=== PATIENT | male | born 1965 | race Caucasian/White ===

== ENCOUNTER → 2020-05-23 11:01 | Outpatient (BNVA) | payer BC, SELFPAY | PROVIDERS: PCP Nurse Practitioner Family; Referring Provider Nurse Practitioner Family; Visit Provider Internal Medicine | DX: E05.00 Thyrotoxicosis with diffuse goiter without thyrotoxic crisis or storm (principal); R79.89 Other specified abnormal findings of blood chemistry | CPT/HCPCS: 99204 ==

== ENCOUNTER 2020-05-26 08:50 | Outpatient (CLI) | payer BC, SELFPAY ==
[2020-05-26 10:05] LABS: Free T4 Free Thyroxine 2.19 ng/dL (0.82-1.77); Thyroid Stimulating Hormone 0.01 uIU/mL (0.27-4.20)
[2020-05-28 09:23] LABS: T3 Total 221 ng/dL (76-181)
[2020-06-02 18:52] LABS: TSH Receptor Binding Antibody 12.17 IU/L (< OR = 2.00)
== END 2020-05-26 08:51 | disposition home or self-care (01) ==
PROVIDERS: PCP Nurse Practitioner Family; Visit Provider Internal Medicine
DX: E05.00 Thyrotoxicosis with diffuse goiter without thyrotoxic crisis or storm (principal)
CPT/HCPCS: 36415; 83516; 84439; 84443; 84480

== ENCOUNTER → 2020-07-21 08:27 | Outpatient (BNVA) | payer OTHER, SELFPAY | PROVIDERS: PCP Nurse Practitioner Family; Visit Provider Internal Medicine | DX: E05.00 Thyrotoxicosis with diffuse goiter without thyrotoxic crisis or storm (principal); R79.89 Other specified abnormal findings of blood chemistry | CPT/HCPCS: 99214 ==

== ENCOUNTER 2020-07-27 12:59 | Outpatient (CLI) | payer OTHER, SELFPAY ==
[2020-07-27 13:54] LABS: Alanine Aminotransferase 24 U/L (0-41); Albumin Level 4.2 g/dL (3.5-5.2); Alkaline Phosphatase 129 IU/L (40-130); Anion Gap 15.9 (5-19); Aspartate Amino Transferase 17 U/L (0-40); Blood Urea Nitrogen 15 mg/dL (6-20); Calcium 8.7 mg/dL (8.5-10.5); Carbon Dioxide 23 mmol/L (22-29); Chloride 104 mmol/L (98-107); Free T4 Free Thyroxine 1.59 ng/dL (0.82-1.77); Glomerular Filtration Rate 117.1 mL/min (90-130); Glucose 92 mg/dL (65-115); Osmolality Calculated 288 mOsm/kg (285-295); Potassium 3.9 mmol/L (3.5-5.1); Sodium 139 mmol/L (136-145); Thyroid Stimulating Hormone 0.01 uIU/mL (0.27-4.20); Total Bilirubin 0.6 mg/dL (0.15-1.2); Total Protein 7.2 g/dL (6.6-8.7)
[2020-07-28 08:27] LABS: T3 Total 222 ng/dL (76-181)
== END 2020-07-27 13:00 | disposition home or self-care (01) ==
LOC: LAB 13:02
PROVIDERS: PCP Nurse Practitioner Family; Visit Provider Internal Medicine
DX: E05.00 Thyrotoxicosis with diffuse goiter without thyrotoxic crisis or storm (principal)
CPT/HCPCS: 36415; 80053; 84439; 84443; 84480

== ENCOUNTER 2020-12-05 07:56 | Outpatient (CLI) | payer OTHER, SELFPAY ==
[2020-12-05 09:11] LABS: Free T4 Free Thyroxine 1.01 ng/dL (0.82-1.77); Thyroid Stimulating Hormone 0.04 uIU/mL (0.27-4.20)
[2020-12-06 11:13] LABS: T3 Total 129 ng/dL (76-181)
== END 2020-12-05 07:57 | disposition home or self-care (01) ==
PROVIDERS: PCP Nurse Practitioner Family; Visit Provider Internal Medicine
DX: R79.89 Other specified abnormal findings of blood chemistry (principal)
CPT/HCPCS: 36415; 84439; 84443; 84480

== ENCOUNTER 2021-01-18 08:34 | Outpatient (CLI) | payer OTHER, SELFPAY ==
[2021-01-18 09:15] LABS: Basophils % 0.6 %; Eosinophils # 0.2 10^3/uL (0.0-0.8); Eosinophils % 4.3 %; Hematocrit 45.5 % (42.0-52.0); Hemoglobin 15.5 g/dL (11.7-16.6); Lymphocytes # 1.8 10^3/uL (0.8-4.8); Lymphocytes % 33.6 %; Mean Corpuscular HGB Conc 34.1 g/dL (30.0-36.0); Mean Corpuscular Hemoglobin 31.4 pg (28.0-34.0); Mean Corpuscular Volume 92.1 fl (80-94); Mean Platelet Volume 9.1 fL (7.4-10.4); Monocytes # 0.4 10^3/uL (0.2-0.9); Monocytes % 7.1 %; Neutrophils # 2.86 10^3/uL (1.8-7.7); Neutrophils % 53.8 %; Nucleated Red Blood Cells % 0 %; Platelet Count 305 10^3/cmm (130-400); Red Blood Count 4.94 10^6/uL (4.1-5.3); Red Cell Distribution Width 12.4 % (12.1-15.1); White Blood Count 5.3 10^3/uL (4.0-10.0)
[2021-01-18 09:40] LABS: Alanine Aminotransferase 25 U/L (0-41); Albumin Level 4.2 g/dL (3.5-5.2); Alkaline Phosphatase 111 IU/L (40-130); Anion Gap 14.1 (5-19); Aspartate Amino Transferase 22 U/L (0-40); Blood Urea Nitrogen 15 mg/dL (6-20); Calcium 9.1 mg/dL (8.5-10.5); Carbon Dioxide 26 mmol/L (22-29); Chloride 102 mmol/L (98-107); Globulin 2.9 g/dL (1.3-4.6); Glomerular Filtration Rate 77.6 mL/min (90-130); Glucose 109 mg/dL (65-115); Osmolality Calculated 287 mOsm/kg (285-295); Potassium 4.1 mmol/L (3.5-5.1); Sodium 138 mmol/L (136-145); Total Bilirubin 0.5 mg/dL (0.15-1.2); Total Protein 7.1 g/dL (6.6-8.7)
== END 2021-01-18 08:35 | disposition home or self-care (01) ==
LOC: LAB 08:39
PROVIDERS: PCP Nurse Practitioner Family; Visit Provider Internal Medicine
DX: E05.00 Thyrotoxicosis with diffuse goiter without thyrotoxic crisis or storm (principal); R79.89 Other specified abnormal findings of blood chemistry
CPT/HCPCS: 36415; 80053; 85025

== ENCOUNTER → 2021-10-16 12:47 | Outpatient (BNVA) | payer OTHER, SELFPAY | PROVIDERS: PCP Nurse Practitioner Family; Visit Provider Nurse Practitioner Family | DX: Z00.00 Encounter for general adult medical examination without abnormal findings (principal); K21.9 Gastro-esophageal reflux disease without esophagitis; N52.9 Male erectile dysfunction, unspecified; I10 Essential (primary) hypertension | CPT/HCPCS: 80053; 80061; 84403; 84439; 84443; 84481; 85025 ==

== ENCOUNTER → 2022-01-15 14:30 | Outpatient (BNVA) | payer OTHER, SELFPAY | PROVIDERS: PCP Nurse Practitioner Family; Visit Provider Nurse Practitioner Family | DX: E05.00 Thyrotoxicosis with diffuse goiter without thyrotoxic crisis or storm (principal) | CPT/HCPCS: 80053; 84436; 84443; 84481; 85025 ==

== ENCOUNTER 2022-08-13 12:18 | Outpatient (CLI) | payer OTHER, SELFPAY ==
[2022-08-13 13:15] LABS: Basophils % 0.6 %; Eosinophils # 0.2 10^3/uL (0.0-0.8); Eosinophils % 2.4 %; Hematocrit 43.6 % (42.0-52.0); Hemoglobin 14.6 g/dL (11.7-16.6); Lymphocytes # 2.1 10^3/uL (0.8-4.8); Lymphocytes % 31.9 %; Mean Corpuscular HGB Conc 33.5 g/dL (30.0-36.0); Mean Corpuscular Hemoglobin 30.7 pg (28.0-34.0); Mean Corpuscular Volume 91.8 fl (80-94); Mean Platelet Volume 9.5 fL (7.4-10.4); Monocytes # 0.6 10^3/uL (0.2-0.9); Monocytes % 8.3 %; Neutrophils # 3.76 10^3/uL (1.8-7.7); Neutrophils % 56.5 %; Nucleated Red Blood Cells % 0 %; Platelet Count 329 10^3/cmm (130-400); Red Blood Count 4.75 10^6/uL (4.1-5.3); Red Cell Distribution Width 12.9 % (12.1-15.1); White Blood Count 6.7 10^3/uL (4.0-10.0)
[2022-08-13 13:48] LABS: Alanine Aminotransferase 18 U/L (0-41); Albumin Level 4.3 g/dL (3.5-5.2); Alkaline Phosphatase 90 U/L (40-130); Anion Gap 14.8 (5-19); Aspartate Amino Transferase 17 U/L (0-40); Blood Urea Nitrogen 12 mg/dL (6-20); Calcium 9.1 mg/dL (8.5-10.5); Carbon Dioxide 24 mmol/L (22-29); Chloride 102 mmol/L (98-107); Free T4 Free Thyroxine 1.08 ng/dL (0.82-1.77); Glucose 88 mg/dL (65-115); Osmolality Calculated 283 mOsm/kg (285-295); Potassium 3.8 mmol/L (3.5-5.1); Sodium 137 mmol/L (136-145); Thyroid Stimulating Hormone 1.98 uIU/mL (0.27-4.20); Total Bilirubin 0.9 mg/dL (0.15-1.2); Total Protein 7.3 g/dL (6.6-8.7)
[2022-08-14 10:55] LABS: T3 Total 119 ng/dL (76-181)
== END 2022-08-13 12:19 | disposition home or self-care (01) ==
PROVIDERS: PCP Nurse Practitioner Family; Visit Provider Internal Medicine
DX: E05.00 Thyrotoxicosis with diffuse goiter without thyrotoxic crisis or storm (principal); E78.5 Hyperlipidemia, unspecified; I10 Essential (primary) hypertension; K21.9 Gastro-esophageal reflux disease without esophagitis
CPT/HCPCS: 36415; 80053; 84439; 84443; 84480; 85025

== ENCOUNTER → 2023-01-30 07:45 | Outpatient (BNVA) | payer OTHER, SELFPAY | PROVIDERS: PCP Clinical Nurse Specialist Adult Health; Visit Provider Clinical Nurse Specialist Adult Health | DX: E78.2 Mixed hyperlipidemia (principal); Z23 Encounter for immunization; I15.2 Hypertension secondary to endocrine disorders; E05.90 Thyrotoxicosis, unspecified without thyrotoxic crisis or storm; K21.9 Gastro-esophageal reflux disease without esophagitis | CPT/HCPCS: 80061 ==

== ENCOUNTER → 2023-02-19 12:22 | Outpatient (BNVA) | payer OTHER, SELFPAY | PROVIDERS: PCP Clinical Nurse Specialist Adult Health; Visit Provider Internal Medicine | DX: E05.00 Thyrotoxicosis with diffuse goiter without thyrotoxic crisis or storm (principal); E05.90 Thyrotoxicosis, unspecified without thyrotoxic crisis or storm | CPT/HCPCS: 84443 ==

== ENCOUNTER 2023-04-18 11:28 | Outpatient (CLI) | payer OTHER, SELFPAY ==
[2023-04-18 12:14] LABS: Free T4 Free Thyroxine 1.08 ng/dL (0.82-1.77); Thyroid Stimulating Hormone 0.45 uIU/mL (0.27-4.20)
[2023-04-20 03:34] LABS: T3 Total 116 ng/dL (76-181)
== END 2023-04-18 11:29 | disposition home or self-care (01) ==
LOC: LAB 11:30
PROVIDERS: PCP Clinical Nurse Specialist Adult Health; Visit Provider Internal Medicine
DX: E05.00 Thyrotoxicosis with diffuse goiter without thyrotoxic crisis or storm (principal)
CPT/HCPCS: 36415; 84439; 84443; 84480

== ENCOUNTER 2023-07-08 07:32 | Outpatient (CLI) | payer OTHER, SELFPAY ==
[2023-07-08 08:38] LABS: Free T4 Free Thyroxine 1.05 ng/dL (0.82-1.77); Thyroid Stimulating Hormone 0.28 uIU/mL (0.27-4.20)
[2023-07-09 11:59] LABS: T3 Total 134 ng/dL (76-181)
== END 2023-07-08 07:33 | disposition home or self-care (01) ==
LOC: LAB 07:33
PROVIDERS: PCP Clinical Nurse Specialist Adult Health; Visit Provider Internal Medicine
DX: E05.90 Thyrotoxicosis, unspecified without thyrotoxic crisis or storm (principal)
CPT/HCPCS: 36415; 84439; 84443; 84480

== ENCOUNTER 2023-09-29 07:06 | Outpatient (CLI) | payer OTHER, SELFPAY ==
[2023-09-29 08:43] LABS: Free T4 Free Thyroxine 1.02 ng/dL (0.82-1.77); Thyroid Stimulating Hormone 0.76 uIU/mL (0.27-4.20)
== END 2023-09-29 07:07 | disposition home or self-care (01) ==
LOC: LAB 07:07
PROVIDERS: PCP Clinical Nurse Specialist Adult Health; Visit Provider Internal Medicine
DX: E05.00 Thyrotoxicosis with diffuse goiter without thyrotoxic crisis or storm (principal); R63.5 Abnormal weight gain
CPT/HCPCS: 36415; 83516; 84439; 84443

== ENCOUNTER 2024-04-27 07:23 | Outpatient (CLI) | payer OTHER, SELFPAY ==
[2024-04-27 08:23] LABS: Cholesterol 178 mg/dL (0-200); Free T4 Free Thyroxine 0.97 ng/dL (0.82-1.77); HDL Cholesterol 54 mg/dL (60-100); LDL Cholesterol Calculated 86 mg/dL (50-129); LDL HDL Ratio 1.59 RATIO (0.00-3.22); Thyroid Stimulating Hormone 1.17 uIU/mL (0.27-4.20); Triglycerides 190 mg/dL (0-150)
[2024-04-28 09:40] LABS: T3 Total 115 ng/dL (76-181)
== END 2024-04-27 07:24 | disposition home or self-care (01) ==
LOC: LAB 07:25
PROVIDERS: PCP Clinical Nurse Specialist Adult Health; Visit Provider Internal Medicine
DX: E05.00 Thyrotoxicosis with diffuse goiter without thyrotoxic crisis or storm (principal); E05.90 Thyrotoxicosis, unspecified without thyrotoxic crisis or storm; R63.5 Abnormal weight gain; E78.2 Mixed hyperlipidemia
CPT/HCPCS: 36415; 80061; 84439; 84443; 84480

== ENCOUNTER → 2024-07-27 13:20 | Outpatient (BNVA) | payer OTHER, SELFPAY | PROVIDERS: PCP Family Medicine; Visit Provider Family Medicine | DX: I15.2 Hypertension secondary to endocrine disorders (principal); E78.2 Mixed hyperlipidemia | CPT/HCPCS: 80053; 85025 ==

== ENCOUNTER 2024-11-05 18:06 | Emergency (ER) | payer OTHER, SELFPAY ==
[2024-11-05 18:30] VITALS: BP 114/77; PULSE 75; RESP 16; TEMP 36.7; O2SAT 95; BMI 33.7
--- NOTE | 2024-11-05 18:43 | ECG_ITS ---
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 Measurements Intervals [place] Rate: 63 P: 35 OH: 147 QRS: -7 QRSD: 109 T: 42 QT: 377 QTc: 386 Interpretive Statements SINUS RHYTHM INCOMPLETE RIGHT BUNDLE BRANCH BLOCK [90+ ms QRS DURATION, TERMINAL R IN V1/V2, 40+ ms S IN I/aVL/V4/V5/V6] No previous ECG available for comparison Electronically Signed On 11-06-2024 00:16:28 CDT by Monica Farias M.D. [email or web address]
--- NOTE | 2024-11-05 18:43 | XRR_ITS ---
PROCEDURE INFORMATION: Exam: XR Chest Exam date and time: 11/05/2024 7:28 PM Age: 59 years old Clinical indication: Chest pressure; C/O chest pain TECHNIQUE: Imaging protocol: Radiologic exam of the chest. Views: 1 view. COMPARISON: No relevant prior studies available. FINDINGS: Lungs: Unremarkable. No consolidation. Pleural spaces: Unremarkable. No pleural effusion. No pneumothorax. Heart/Mediastinum: Unremarkable. No cardiomegaly. Bones/joints: Unremarkable. XR/XR chest 1V portable [id number] IMPRESSION: No acute findings.
[2024-11-05 19:30] VITALS: BP 122/70; PULSE 76; O2SAT 98
[2024-11-05 19:48] LABS: Hematocrit 44.4 % (37-53); Hemoglobin 15.10 g/dL (11.27-16.99); Mean Corpuscular HGB Conc 34.0 g/dL (30-55); Mean Corpuscular Hemoglobin 31.4 pg (27-33); Mean Corpuscular Volume 92.3 fl (82-101); Nucleated Red Blood Cells % 0 %; Platelet Count 301 10^3/cmm (157-399); Red Blood Count 4.81 10^6/uL (3.85-5.65); White Blood Count 17.08 10^3/uL (3.29-11.43)
[2024-11-05 20:05] LABS: Troponin(5th) Baseline 10 ng/L (0-15)
[2024-11-05 20:08] LABS: Alanine Aminotransferase 22 U/L (0-41); Albumin Level 4.5 g/dL (3.5-5.2); Alkaline Phosphatase 99 U/L (40-130); Anion Gap 19.5 (5-19); Aspartate Amino Transferase 20 U/L (0-40); Blood Urea Nitrogen 17 mg/dL (6-20); Calcium 9.4 mg/dL (8.5-10.5); Carbon Dioxide 24 mmol/L (22-29); Chloride 101 mmol/L (98-107); Creatinine Clr Calc Pharmacy 88.4021; Globulin 2.9 g/dL (1.3-4.6); Glucose 100 mg/dL (65-115); Osmolality Calculated 292 mOsm/kg (285-295); Potassium 4.5 mmol/L (3.5-5.1); Sodium 140 mmol/L (136-145); Total Protein 7.4 g/dL (6.6-8.7)
[2024-11-05 20:18] VITALS: BP 135/87; PULSE 64; RESP 18; O2SAT 99
[2024-11-05 20:30] VITALS: BP 118/75; BP 124/81; BP 135/87; PULSE 67; PULSE 71; PULSE 73
[2024-11-05 20:38] VITALS: BP 114/77; PULSE 69; O2SAT 97
--- NOTE | 2024-11-06 05:47 | ED_ITS ---
HPI - Syncope 2 General: Chief Complaint: Syncope Stated Complaint: passed out 2x in last 60min Time Seen by Provider: 11/05/24 19:22 History of Present Illness: Gabe Ocampo is a 59-yo M with HTN on Losartan who blacked out twice this afternoon after yard work. He had been bending repeatedly while cleaning a lawn- mower, then came inside, sat down, and within 30 s felt dizzy, light-headed, and fuzzy. He slid from the chair to the floor, briefly lost consciousness, and struck his head only lightly because a cushion was beneath him. After 4?5 min he was helped back to the chair, where a second syncopal event occurred, this time with emesis of water he had recently drunk. He remained queasy for several minutes but recovered enough to walk to the car, though unsteadily. On arrival to ED he denies current dizziness, chest pain, shortness of breath, or abdominal pain; only mild arm soreness from venipuncture and minimal headache. He reports one bowl of cereal for breakfast, no lunch, minimal fluid intake, and about 30 min in hot, humid weather. No prior similar episodes to this extent. Denies diabetes, hypoglycemia, tobacco; admits two hard seltzers today. No recent infection symptoms. Related Data Home Medications ?Medication ?Instructions ?Recorded ?Confirmed omeprazole 20 mg capsule,delayed 20 mg PO DAILY 07/27/24 release Previous Rx's ?Medication ?Instructions ?Recorded losartan 100 mg tablet 100 mg PO DAILY #90 tabs 12/13 atorvastatin 40 mg tablet See Rx Instructions .Route 0 08/13/24 .COMPLEX #90 tabs tadalafil 10 mg tablet 10 mg PO DAILY PRN sexual ac tivity 09/05/24 #30 tabs Allergies Allergy/AdvReac Type Severity Reaction Status Date / Time No Known Allergies Allergy Verified 11/05/24 18:33 [facility] ED 2 [facility]: Medical History (Updated 11/05/24 @ 20:35 by Dipak Kruse MD) Hand dermatitis Hyperlipidemia GERD (gastroesophageal reflux disease) Hypertension Graves disease Surgical History (Updated 07/27/24 @ 12:22 by Sally Saavedra MD) History of carpal tunnel release bilateral Family History (Updated 07/27/24 @ 12:26 by Sally Saavedra MD) Mother , age 78 Scleroderma Father , CVA at age 70 Stroke Obesity Hypertension Brother , leukemia Leukemia Brother Hydrocephalus Social History (Updated 07/27/24 @ 12:38 by Sally Saavedra MD) Smoking and tobacco/nicotine status: never used tobacco/nicotine Second hand smoke exposure: No Alcohol intake: current Alcohol intake frequency: few times a month Household members: spouse Marital status: Number of children: 2 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 Pets and animals: Yes Pets & animals: cat(s) Leisure activites: hunting and fishing Special max needs: No Agree to transfusion: Yes Physical Exam 2 Const: COMMON NORMALS: no acute distress, patient oriented x3 and alert HENMT: COMMON NORMALS: normocephalic and atraumatic HEAD & SCALP: n ormocephalic and atraumatic Eye: COMMON NORMALS: Equal, round and reactive pupils present, EOMs intact bilaterally and no scleral icterus PUPIL: Yes Equal, round and reactive pupils present Resp: COMMON NORMALS: normal respiratory effort and No retractions Cardio: COMMON NORMALS: regular rate, regular rhythm and No murmurs present (Cardio) RATE: regular rate RHYTHM: regular rhythm GI: COMMON NORMALS: Normal to inspection, nondistended, normoactive bowel sounds present, Soft to palpation and non-tender PALPATION: Yes Soft to palpation Neuro: COMMON NORMALS: patient oriented x3 SENSORIUM/ORIENTATION: Yes alert Skin: COMMON NORMALS: no rashes or lesions noted GENERAL SKIN EXAM: no rashes or lesions noted Course 2 Vital Signs: Vital signs: Vital Signs Temperature 98.1 F 11/05/24 18:30 Pulse Rate 69 11/05/24 20:38 Respiratory Rate 18 11/05/24 20:18 Blood Pressure 114/77 11/05/24 20:38 Pulse Oximetry 97 11/05/24 20:38 Oxygen Delivery Me thod Room Air 11/05/24 20:18 MDM - Syncope Medical Decision Making At the time of my exam, patient is asymptomatic with stable vital signs. He is not orthostatic. He relates a story likely consistent with vasovagal etiology to his syncope. EKG, chest x-ray, labs are noncontributory. Troponin is not elevated. I do not feel he requires hospitalization or further workup at this time. He will be discharged in stable improved condition with instructions to be mindful of his blood pressure and follow-up with primary care to see if medication adjustment is warranted. He shows good understanding and agrees to the plan. Lab Data 11/05/24 19:42 11/05/24 19:42 Radiology Impressions Chest X-Ray 11/05/24 18:43 IMPRESSION: No acute findings. Laboratory Results WBC 17.08 10^3/uL (3.29-11.43) H 11/05/24 19:42 RBC 4.81 10^6/uL (3.85-5.65) 11/05/24 19:42 Hgb 15.10 g/dL (11.27-16.99) 11/05/24 19:42 Hct 44.4 % (37-53) 11/05/24 19:42 MCV 92.3 fl (82-101) 11/05/24 19:42 MCH 31.4 pg (27-33) 11/05/24 19:42 MCHC 34.0 g/dL (30-55) 11/05/24 19:42 RDW 12.8 % (12.1-15.1) 11/05/24 19:42 Plt Count 301 10^3/cmm (157-399) 11/05/24 19:42 MPV 8.9 fL (7.4-10.4) 11/05/24 19:42 Neut % (Auto) 79.5 % 11/05/24 19:42 Lymph % (Auto) 11.0 % 11/05/24 19:42 [place] % (Auto) 7.1 % 11/05/24 19:42 Eos % (Auto) 1.5 % 11/05/24 19:42 Baso % (Auto) 0.4 % 11/05/24 19:42 Neut # (Auto) 13.58 10^3/uL (1.8-7.7) H 11/05/24 19:42 Lymph # (Auto) 1.9 10^3/uL (0.8-4.8) 11/05/24 19:42 [place] # (Auto) 1.2 10^3/uL (0.2-0.9) H 11/05/24 19:42 Eos # (Auto) 0.3 10^3/uL (0.0-0.8) 11/05/24 19:42 Baso # (Auto) 0.1 10^3/uL (0.0-0.1) 11/05/24 19:42 Nucleated RBC % (auto) 0 % 11/05/24 19:42 Nucleated RBCs # 0.0 /100WBC 11/05/24 19:42 Sodium 140 mmol/L (136-145) 11/05/24 19:42 Potassium 4.5 mmol/L (3.5-5.1) 11/05/24 19:42 Chloride 101 mmol/L (98-107) 11/05/24 19:42 Carbon Dioxide 24 mmol/L (22-29) 11/05/24 19:42 Anion Gap 19.5 (5-19) H 11/05/24 19:42 BUN 17 mg/dL (6-20) 11/05/24 19:42 Creatinine 1.1 mg/dL (0.7-1.2) 11/05/24 19:42 GFR Calculation 68.5 mL/min (90-130) L 11/05/24 19:42 Glucose 100 mg/dL (65-115) 11/05/24 19:42 Calculated Osmolality 292 mOsm/kg (285-295) 11/05/24 19:42 Calcium 9.4 mg/dL (8.5-10.5) 11/05/24 19:42 Total Bilirubin 0.8 mg/dL (0.15-1.2) 11/05/24 19:42 AST 20 U/L (0-40) 11/05/24 19:42 ALT 22 U/L (0-41) 11/05/24 19:42 Alkaline Phosphatase 99 U/L (40-130) 11/05/24 19:42 Troponin T Baseline 10 ng/L (0-15) 11/05/24 19:42 Total Protein 7.4 g/dL (6.6-8.7) 11/05/24 19:42 Albumin 4.5 g/dL (3.5-5.2) 11/05/24 19:42 Globulin 2.9 g/dL (1.3-4.6) 11/05/24 19:42 All radiology interpretation(s) finalized by discharge EKG Data EKG 1: Interpretation: Time?1920?sinus rhythm, rate of 63, no ST segment elevation or depression, no T wave inversions, intervals within normal limits. QTc = 383 Discharge Plan Discharge Patient Disposition: Home Clinical Impression: Syncope and collapse Condition: Stable Prescriptions: No Action omeprazole 20 mg capsule,delayed release(DR/EC) 20 mg PO DAILY losartan 100 mg tablet 100 mg PO DAILY Qty: 90 3RF atorvastatin 40 mg tablet See Rx Instructions .ROUTE .COMPLEX Qty: 90 1RF Dose Instruction: Take 1 tablet by mouth once daily Rx Instructions: Take 1 tablet by mouth once daily tadalafil 10 mg tablet 10 mg PO DAILY PRN (Reason: sexual activity) Qty: 30 0RF Rx Instructions: administer approximately 30min before sexual activity; no more than 1 dose per 24hrs Discharge Orders: Discharge ED (Routine); Ordered 11/05/24 Ordered By: Dipak Kruse Referrals: Sally Saavedra MD [Primary Care Provider, Family Practice] Discharge Diet: Usual diet Discharge Activity: Increase activity as tolerated Patient Instructions: Syncope (ED), Patient Portal & Misty Instructions Activity Restrictions/Additional Instructions: Your EKG is reassuring and troponin level is not elevated and you are not particularly dehydrated nor you have electrolyte abnormalities which would put you at risk for non-perfusing dysrhythmia of the heart. Please drink little bit more water and consider taking her blood pressure readings before taking blood pressure medication for the next few days as he may have a transient drop in blood pressure. If symptoms persist you are always welcome back to the emergency department or else follow-up with your primary care doctor in the next week or so. Print Language: Yoruba Coding Level of Care Code ED Operations Team Leader for Abdiel [facility]
== END 2024-11-05 20:45 | disposition home or self-care (01) ==
PROVIDERS: Emergency Provider Student in an Organized Health Care Education/Training Program; PCP Family Medicine
DX: R55 Syncope and collapse (principal); E78.5 Hyperlipidemia, unspecified; I10 Essential (primary) hypertension
CPT/HCPCS: 36415; 71045; 80053; 84484; 85025; 93005; 99285